=== PATIENT | male | born 1955 | race Caucasian/White ===

== ENCOUNTER 2019-04-12 17:00 | Emergency (ER) | payer OTHER ==
[~2019-04-12] VITALS: Ht 177.8 cm; Wt 109.3 kg
[~2019-04-12 17:00] MED LIST: AMBIEN10 MG PO; CRESTOR10 MG PO; IBUPROFEN400 MG PO
[2019-04-12] MEDS ORDERED: SODIUM CHLORIDE 0.9% 1000ML 1,000 ML IV STA (17:56)
[2019-04-12] MEDS ORDERED: MORPHINE SULFATE INJ 4 MG/ML INJ 1ML IV NR (18:00)
[2019-04-12] MEDS ORDERED: KETOROLAC TROMETHAMINE 30 MG/ML VIAL IV NR (18:00)
[2019-04-12] MEDS ORDERED: ONDANSETRON HCL INJ 2MG/ML 2ML 2 MG/ML VIAL IV NR (18:00)
[2019-04-12 18:23] LABS: BASOPHILS # (AUTO) 0.1 (0.0-0.1); BASOPHILS % 0.9 % (0.0-1.0); EOSINOPHILS # (AUTO) 0.1 (0.0-0.4); EOSINOPHILS % 0.5 % (0.0-6.0); HEMATOCRIT 42.4 % (38.2-49.6); HEMOGLOBIN 14.5 g/dL (14.0-18.0); LYMPHOCYTES # (AUTO) 1.6 (1.0-3.2); LYMPHOCYTES % 12.2 % (18.0-39.1); MEAN CORPUSCULAR HEMOGLOBIN 32.2 pg (28-32); MEAN CORPUSCULAR HGB CONC 34.2 g/dL (31-35); MONOCYTES # (AUTO) 0.9 (0.2-0.8); MONOCYTES % 6.6 % (4.4-11.3); NEUTROPHILS # (AUTO) 10.3 (2.1-6.9); NEUTROPHILS % 79.5 % (38.7-80.0); PLATELET COUNT 260 x10e3/uL (140-360); RED BLOOD COUNT 4.51 x10e6/uL (4.3-5.7); RED CELL DISTRIBUTION WIDTH 13.2 % (11.7-14.4)
[2019-04-12 18:45] LABS: ALBUMIN 3.8 g/dL (3.5-5.0); ALBUMIN/GLOBULIN RATIO 1.3 (0.8-2.0); ANION GAP 16.5 mmol/L (8-16); CALCIUM 8.9 mg/dL (8.4-10.2); CREATININE, SERUM 1.23 mg/dL (0.72-1.25); POTASSIUM 4.5 mmol/L (3.5-5.1)
--- NOTE | 2019-04-12 18:50 | Diagnostic Imaging Report ---
EXAMINATION: CT of the abdomen and pelvis without contrast. TECHNIQUE: Helical CT images of the abdomen and pelvis were performed from the lung bases to the lesser trochanters. No intravenous contrast was given per renal stone protocol. Coronal and sagittal reformatted images were obtained.Dose modulation, iterative reconstruction, and/or weight based adjustment of the mA/kV was utilized to reduce the radiation dose to as low as reasonably achievable. COMPARISON: None. CLINICAL HISTORY:Right-sided pain DISCUSSION: ABSENCE OF INTRAVENOUS CONTRAST DECREASES SENSITIVITY FOR DETECTION OF FOCAL LESIONS AND VASCULAR PATHOLOGY. ABDOMEN/PELVIS: LOWER THORAX: Unremarkable. HEPATOBILIARY:No focal hepatic lesions. No biliary ductal dilation. The gallbladder is normal. SPLEEN: No splenomegaly. PANCREAS: No focal masses or ductal dilatation. ADRENALS: No adrenal nodules. KIDNEYS/URETERS: 3 mm calculus at the right ureterovesicular junction causing mild hydronephrosis and perinephric stranding. PELVIC ORGANS/BLADDER: The bladder is normal. PERITONEUM/RETROPERITONEUM: No free air or fluid. LYMPH NODES: No intra-abdominal,retroperitoneal, pelvic or inguinal lymphadenopathy. VESSELS: Limited evaluation. GI TRACT: No distention or wall thickening. Appendix normal. Scattered colonic diverticulosis. BONES AND SOFT TISSUES: No bony destructive lesions. No soft tissue abnormalities. IMPRESSION: 3 mm calculus at the right ureterovesicular junction causing mild hydronephrosis. Signed by: Dr. Yung Otero M.D. on 04/12/2019 6:48 PM
[2019-04-12 19:40] LABS: CLARITY,URINE SL CLOUDY (CLEAR); COLOR,URINE YELLOW (YELLOW); LEUKOCYTE ESTERASE ,URINE NEGATIVE (NEGATIVE); NITRITE,URINE NEGATIVE (NEGATIVE)
[2019-04-12 19:41] LABS: BILIRUBIN,URINE NEGATIVE (NEGATIVE); KETONES,URINE 1+ (NEGATIVE); PROTEIN,URINE DIPSTICK NEGATIVE (NEGATIVE); URINE UROBILINOGEN 0.2 mg/dL (0.2 - 1)
--- OUTSIDE RECORDS SUMMARY | 2019-04-12 19:46 | XMS REPORT ---
Author [facility] Address Unknown Phone Unavailable Care Team Providers Care Senior [employer] Applications Developer Name Role Phone Martin CONDON Unavailable Unavailable Problems This patient has no known problems. Allergies, Adverse Reactions, Alerts This patient has no known allergies or adverse reactions. Medications This patient has no known medications. Results Test Description Test Time Test Comments Text Results Atomic Results Result Comments CT ABDOMEN/PELVIS WO 2019-04-12 18:46:00 [place] [id number] Patient Name: GABRIELLA CHRISTIAN MR #: [id number] : 1955 Age/Sex: 63/M Req #: [id number] Adm Physician: Ordered by: DREA CHRISTINE NP Report #: [id number] Location: ER Room/Bed: Procedure: [id number] CT/CT ABDOMEN/PELVIS WO Exam Date: 04/12/19 Exam Time: 1823 REPORT STATUS: Signed EXAMINATION: CT of the abdomen and pelvis without contr ast. TECHNIQUE: Helical CT images of the abdomen and pelvis were performed from the lung bases to the lesser trochanters. No intravenous contrast was given per renal stone protocol. Coronal and sagittal reformatted images were obtained.Dose modulation, iterative reconstruction, and/or weight based adjustment of the mA/kV was utilized to reduce the radiation dose to as low as reasonably achievable. COMPARISON: None. CLINICAL HISTORY:Right- sided pain DISCUSSION: ABSENCE OF INTRAVENOUS CONTRAST DECREASES SENSITIVITY FOR DETECTION OF FOCAL LESIONS AND VASCULAR PATHOLOGY. ABDOMEN/PELVIS: LOWER THORAX: Unremarkable. HEPATOBILIARY:No focal hepatic lesions. No biliary ductal dilation. The gallbladder is normal. SPLEEN: No splenomegaly. PANCREAS: No focal masses or ductal dilatation. ADRENALS: No adrenal nodules. KIDNEYS/URETERS: 3 mm calculus at the right ureterovesicular junction causing mild hydronephrosis and perinephric stranding. PELVIC ORGANS/BLADDER: The bladder is normal. PERITONEUM/RETROPERITONEUM: No free air or fluid. LYMPH NODES: No intra- abdominal,retroperitoneal, pelvic or inguinal lymphadenopathy. VESSELS: Limited evaluation. GI TRACT: No distention or wall thickening. Appendix normal. Scattered colonic diverticulosis. BONES AND SOFT TISSUES: No bony destructive lesions. No soft tissue abnormalities. IMPRESSION: 3 mm calculus at the right ureterovesicular junction causing mild hydronephrosis. Signed by: Dr. Huma Franklin M.D. on 04/12/2019 6:48 PM Dictated By: HUMA FRANKLIN MD 47 Transcribed By: HAKAN on 04/12/191847 COPY TO: DREA CHRISTINE NP
[2019-04-12 19:53] LABS: BACTERIA,URINE MODERATE /HPF; MUCUS,URINE MODERATE (RARE)
[2019-04-12 20:24] VITALS: BP 140/78
== END 2019-04-12 20:26 | disposition home or self-care (01) ==
LOC: ER 17:00
DX: R10.31 Right lower quadrant pain (principal); R11.2 Nausea with vomiting, unspecified; N20.0 Calculus of kidney; N39.0 Urinary tract infection, site not specified; E78.5 Hyperlipidemia, unspecified
CPT/HCPCS: 36415; 74176; 80053; 81001; 85025; 99284; J1885; J2270; J2405; J7030

== ENCOUNTER 2023-03-21 16:20 | Emergency (ER) | payer MEDICARE, OTHER ==
[~2023-03-21] VITALS: Ht 177.8 cm; Wt 108.9 kg
[2023-03-21] MEDS ORDERED: MELOXICAM10 MG (16:50)
[2023-03-21] MEDS ORDERED: PROTONIX20 MG PO (16:50)
[2023-03-21] MEDS ORDERED: Ampicillin/Sulbactam 3 GM Vial ONE (16:56)
[2023-03-21] MEDS ORDERED: SODIUM CHLORIDE 0.9% 100 ML ONE (16:56)
[2023-03-21] MEDS ORDERED: AMOX TR-K CLV1 EAC2 PO (17:33)
[2023-03-21 17:40] VITALS: O2SAT 97
== END 2023-03-21 17:40 | disposition home or self-care (01) ==
LOC: FSED 16:27
DX: L03.114 Cellulitis of left upper limb (principal); S61.452A Open bite of left hand, initial encounter; R60.9 Edema, unspecified; L53.8 Other specified erythematous conditions; W55.01XA Bitten by cat, initial encounter; Y92.89 Other specified places as the place of occurrence of the external cause; E78.5 Hyperlipidemia, unspecified; K21.9 Gastro-esophageal reflux disease without esophagitis; Z85.820 Personal history of malignant melanoma of skin
CPT/HCPCS: 80053; 85025; 99284; J0295; J7050

== ENCOUNTER 2024-05-25 21:42 | Emergency (ER) | payer MEDICARE ==
[~2024-05-25] VITALS: Ht 177.8 cm; Wt 101.6 kg
[~2024-05-25 21:42] MED LIST changes: +AMOX TR-K CLV1 EAC2 PO; +MELOXICAM10 MG; +PROTONIX20 MG PO
[2024-05-25] MEDS ORDERED: ONDANSETRON ODT4 MG PO (22:11)
[2024-05-25] MEDS: ONDANSETRON HCL INJ 2MG/ML 2ML 2 MG/ML VIAL IV STA (22:14)
[2024-05-25] MEDS: SODIUM CHLORIDE 0.9% 1000ML 1,000 ML IV STA (22:15)
[2024-05-26 00:19] VITALS: PULSE 62; RESP 17; TEMP 98.6
[2024-05-26 01:46] VITALS: BP 147/88; PULSE 62; RESP 17; TEMP 98.3; O2SAT 96
== END 2024-05-26 00:31 | disposition home or self-care (01) ==
LOC: FSED 22:03
DX: R11.2 Nausea with vomiting, unspecified (principal); K52.9 Noninfective gastroenteritis and colitis, unspecified; J10.1 Influenza due to other identified influenza virus with other respiratory manifestations; E78.5 Hyperlipidemia, unspecified; K21.9 Gastro-esophageal reflux disease without esophagitis; Z11.52 Encounter for screening for COVID-19; Z85.820 Personal history of malignant melanoma of skin
CPT/HCPCS: 0223U; 80053; 81003; 85025; 87400; 99283; J2405; J7030

== ENCOUNTER 2024-08-03 11:13 | Inpatient (IN) | payer MEDICARE ==
[2024-08-03] VITALS (8 sets, daily range): BP systolic 148–184; BP diastolic 76–88; PULSE 71–75; RESP 18–20; TEMP 97.7–99.2; O2SAT 94–96
[~2024-08-03] VITALS: Ht 177.8 cm; Wt 103.6 kg
[~2024-08-03 11:13] MED LIST changes: -MELOXICAM10 MG; +MELOXICAM10 MG PO; +ONDANSETRON ODT4 MG PO
[2024-08-03] MEDS: ONDANSETRON HCL INJ 2MG/ML 2ML 2 MG/ML VIAL IV STA (11:59)
[2024-08-03] MEDS: SODIUM CHLORIDE 0.9% 1000ML 1,000 ML IV SCH (12:04)
[2024-08-03] MEDS: TETANUS/DIPHTHERIA TOX ADULT 0.5 ML SYR IM ONE (12:05)
[2024-08-03] MEDS: TRAMADOL HCL 50 MG TAB PO ONE (12:41)
[2024-08-03] MEDS ORDERED: ONDANSETRON HCL INJ 2MG/ML 2ML 2 MG/ML VIAL IV PRN (14:30)
[2024-08-03] MEDS: METOPROLOL TARTRATE 25 MG TAB PO SCH (16:27)
[2024-08-03] MEDS: ENOXAPARIN SOD INJ 40 MG/0.4 ML SYR SC SCH (16:27)
[2024-08-03] MEDS: TRAMADOL HCL 50 MG TAB PO PRN (16:28)
[2024-08-03] MEDS: ACETAMINOPHEN/CODEINE 300MG - 30MG TAB PO PRN (20:32)
[2024-08-03] MEDS: PANTOPRAZOLE SODIUM 20 MG TABLET.DR PO SCH (20:32)
[2024-08-04 03:16] VITALS: BP 148/80; PULSE 65; RESP 18; TEMP 98.3; O2SAT 94
[2024-08-04 08:27] VITALS: BP 161/79; PULSE 61; RESP 20; TEMP 98; O2SAT 100
[2024-08-04] MEDS: SIMVASTATIN 40 MG TAB PO SCH (08:50)
[2024-08-04 09:28] LABS: BASOPHILS # (AUTO) 0.1 (0.0-0.1); BASOPHILS % 0.7 % (0.0-1.0); EOSINOPHILS # (AUTO) 0.1 (0.0-0.4); EOSINOPHILS % 0.4 % (0.0-6.0); HEMATOCRIT 36.9 % (38.2-49.6); HEMOGLOBIN 12.6 g/dL (14.0-18.0); LYMPHOCYTES # (AUTO) 1.5 (1.0-3.2); LYMPHOCYTES % 12.6 % (18.0-39.1); MEAN CORPUSCULAR HEMOGLOBIN 32.2 pg (28-32); MEAN CORPUSCULAR HGB CONC 34.1 g/dL (31-35); MEAN CORPUSCULAR VOLUME 94.4 fL (81-99); MONOCYTES # (AUTO) 0.9 (0.2-0.8); MONOCYTES % 7.3 % (4.4-11.3); NEUTROPHILS # (AUTO) 9.1 (2.1-6.9); NEUTROPHILS % 78.7 % (38.7-80.0); PLATELET COUNT 225 x10e3/uL (140-360); RED BLOOD COUNT 3.91 x10e6/uL (4.3-5.7); RED CELL DISTRIBUTION WIDTH 14.2 % (11.7-14.4)
[2024-08-04 09:56] LABS: ANION GAP 13.1 mmol/L (8-16); CALCIUM 8.1 mg/dL (8.4-10.2); CREATININE, SERUM 0.88 mg/dL (0.72-1.25); POTASSIUM 3.1 mmol/L (3.5-5.1)
[2024-08-04 10:27] VITALS: BP 79/69; PULSE 161; RESP 20; TEMP 98; O2SAT 100
[2024-08-04 12:14] VITALS: BP 104/68; PULSE 56; RESP 18; TEMP 98; O2SAT 95
[2024-08-04] MEDS: METOPROLOL TARTRATE 25 MG TAB PO ONE (13:00)
[2024-08-04 16:12] VITALS: BP 163/77; PULSE 69; RESP 20; TEMP 98.5; O2SAT 95
[2024-08-04] MEDS: METOPROLOL TARTRATE 50 MG TAB PO SCH (17:14)
[2024-08-04 20:00] VITALS: BP 154/73; PULSE 66; RESP 20; TEMP 98.1; O2SAT 97
[2024-08-05] VITALS (8 sets, daily range): BP systolic 141–164; BP diastolic 69–84; PULSE 51–70; RESP 15–20; TEMP 98–99.7; O2SAT 94–98
[2024-08-05] MEDS ORDERED: FENTANYL CITRATE/PF 100MCG/2 ML INJ ONE (06:39)
[2024-08-05] MEDS ORDERED: EPHEDRINE SULFATE INJ 50 MG/ML VIAL ONE (06:39)
[2024-08-05] MEDS ORDERED: PHENYLEPHRINE HCL 1% 10 MG/ML VIAL ONE (06:39)
[2024-08-05] MEDS ORDERED: ONDANSETRON HCL INJ 2MG/ML 2ML 2 MG/ML VIAL ONE (06:39)
[2024-08-05] MEDS ORDERED: PROPOFOL IV EMULSION 10 MG/ML 20 ML VIAL ONE (06:39)
[2024-08-05] MEDS ORDERED: LIDOCAINE HCL 2% LOCAL INJ 5 ML SDV VIAL INJ ONE (06:39)
[2024-08-05] MEDS ORDERED: MIDAZOLAM HCL 2 MG/2 ML VIAL ONE (06:39)
[2024-08-05] MEDS ORDERED: DEXAMETHASONE SOD PHOS INJ 4 MG/ML SDV ONE (06:39)
[2024-08-05] MEDS ORDERED: SODIUM CHLORIDE 0.9% 100 ML ONE (06:43)
[2024-08-05] MEDS ORDERED: HYDROMORPHONE 2MG/ML ONE (07:16)
[2024-08-06 03:21] VITALS: BP 150/80; PULSE 55; RESP 17; TEMP 98.3; O2SAT 98
[2024-08-06 08:00] VITALS: BP 154/83; PULSE 50; RESP 18; TEMP 98.2; O2SAT 100
[2024-08-06 11:30] VITALS: BP 135/63; PULSE 51; RESP 20; TEMP 97.5; O2SAT 99
[2024-08-06 15:20] LABS: BASOPHILS # (AUTO) 0.1 (0.0-0.1); BASOPHILS % 0.7 % (0.0-1.0); EOSINOPHILS # (AUTO) 0.1 (0.0-0.4); EOSINOPHILS % 0.6 % (0.0-6.0); HEMATOCRIT 31.1 % (38.2-49.6); HEMOGLOBIN 10.5 g/dL (14.0-18.0); LYMPHOCYTES # (AUTO) 1.9 (1.0-3.2); LYMPHOCYTES % 18.5 % (18.0-39.1); MEAN CORPUSCULAR HGB CONC 33.8 g/dL (31-35); MEAN CORPUSCULAR VOLUME 94.8 fL (81-99); MONOCYTES # (AUTO) 1.2 (0.2-0.8); MONOCYTES % 11.1 % (4.4-11.3); NEUTROPHILS # (AUTO) 7.2 (2.1-6.9); NEUTROPHILS % 68.8 % (38.7-80.0); PLATELET COUNT 191 x10e3/uL (140-360); RED BLOOD COUNT 3.28 x10e6/uL (4.3-5.7); RED CELL DISTRIBUTION WIDTH 13.9 % (11.7-14.4); WHITE BLOOD COUNT 10.45 x10e3/uL (4.8-10.8)
[2024-08-06 15:46] LABS: ANION GAP 12.4 mmol/L (8-16); CALCIUM 7.9 mg/dL (8.4-10.2); CREATININE, SERUM 0.8 mg/dL (0.72-1.25)
[2024-08-06 15:51] LABS: POTASSIUM 3.4 mmol/L (3.5-5.1)
[2024-08-06 16:00] VITALS: BP 158/75; PULSE 46; RESP 17; TEMP 97.4; O2SAT 100
[2024-08-06 20:00] VITALS: BP 146/76; PULSE 50; RESP 18; TEMP 98.1; O2SAT 100
[2024-08-06 20:28] VITALS: BP 146/76; PULSE 50; RESP 18; TEMP 98.1; O2SAT 100
[2024-08-07] VITALS (8 sets, daily range): BP systolic 134–179; BP diastolic 58–84; PULSE 50–58; RESP 18–20; TEMP 98.1–98.8; O2SAT 98–100
[2024-08-07 04:24] LABS: BASOPHILS # (AUTO) 0.1 (0.0-0.1); BASOPHILS % 1.2 % (0.0-1.0); EOSINOPHILS # (AUTO) 0.1 (0.0-0.4); EOSINOPHILS % 1.5 % (0.0-6.0); HEMATOCRIT 32.5 % (38.2-49.6); HEMOGLOBIN 10.8 g/dL (14.0-18.0); LYMPHOCYTES # (AUTO) 2.5 (1.0-3.2); MEAN CORPUSCULAR HEMOGLOBIN 31.8 pg (28-32); MEAN CORPUSCULAR HGB CONC 33.2 g/dL (31-35); MEAN CORPUSCULAR VOLUME 95.6 fL (81-99); MONOCYTES % 10.5 % (4.4-11.3); NEUTROPHILS # (AUTO) 5.5 (2.1-6.9); NEUTROPHILS % 59.4 % (38.7-80.0); PLATELET COUNT 194 x10e3/uL (140-360); RED CELL DISTRIBUTION WIDTH 14.1 % (11.7-14.4); WHITE BLOOD COUNT 9.26 x10e3/uL (4.8-10.8)
[2024-08-07 04:39] LABS: ANION GAP 10.3 mmol/L (8-16); CALCIUM 7.9 mg/dL (8.4-10.2); CREATININE, SERUM 0.82 mg/dL (0.72-1.25)
[2024-08-07 04:40] LABS: POTASSIUM 3.3 mmol/L (3.5-5.1)
[2024-08-07] MEDS: HYDRALAZINE HCL 20 MG/ML VIAL IV PRN (17:28)
[2024-08-08 00:18] VITALS: BP 166/67; PULSE 57; RESP 18; TEMP 97.6; O2SAT 99
[2024-08-08] MEDS ORDERED: MELATONIN 3 MG TAB PO PRN (02:00)
[2024-08-08 04:18] VITALS: BP 166/80; PULSE 50; RESP 18; TEMP 98.6; O2SAT 98
[2024-08-08 08:00] VITALS: BP 166/80; PULSE 50; RESP 18; TEMP 98.6; O2SAT 98
[2024-08-08 09:04] VITALS: BP 195/80; PULSE 50; RESP 18; TEMP 97.6; O2SAT 96
[2024-08-08] MEDS ORDERED: MUPIROCIN22 GM TOP (13:43)
[2024-08-08] MEDS ORDERED: ULTRAM 50MG50 MG PO (13:43)
[2024-08-08] MEDS ORDERED: AUGMENTIN 500-1 EACH PO (13:43)
[2024-08-08] MEDS ORDERED: ACETAMINOPHEN-1 EAC4 PO (13:43)
[2024-08-08] MEDS ORDERED: HYDRALAZINE HCL25 MG PO (13:43)
[2024-08-08] MEDS ORDERED: METOPROLOL TART50 MG PO (13:43)
[2024-08-08 14:16] VITALS: BP 165/78; PULSE 46; RESP 20; TEMP 97.6; O2SAT 98
[2024-08-08] MEDS: HYDRALAZINE HCL 25 MG TAB PO SCH (14:22)
[2024-08-08] MEDS: MUPIROCIN 2% OINT 22 GM TUBE TOP SCH (14:28)
[2024-08-08 14:29] VITALS: BP 165/88
[2024-08-08] MEDS ORDERED: ACETAMINOPHEN-1 EAC3 PO (17:53)
== END 2024-08-08 16:16 | disposition home or self-care (01) | DRG 988 ==
LOC: FSED 11:20 → ERHOLD 11:53 → MED/SURG2 14:02
PROVIDERS: ADMIT Internal Medicine; ATTEND Internal Medicine
PROC: 0L970ZZ Drainage of Right Hand Tendon, Open Approach (ICD-10-PCS; principal; 2024-08-05 06:54)
DX: L03.115 Cellulitis of right lower limb (principal); A28.0 Pasteurellosis; R78.81 Bacteremia; E11.9 Type 2 diabetes mellitus without complications; I10 Essential (primary) hypertension; E78.5 Hyperlipidemia, unspecified; S61.250A Open bite of right index finger without damage to nail, initial encounter; K21.9 Gastro-esophageal reflux disease without esophagitis; E66.9 Obesity, unspecified; Z68.33 Body mass index [BMI] 33.0-33.9, adult; Z85.820 Personal history of malignant melanoma of skin
CPT/HCPCS: 36415; 80048; 80053; 82948; 85025; 87040; 87071; 87075; 87186; 87205; 90471; 90714; 96372; 96374; 99252; 99284; J0360; J1100; J1171; J1650; J2003; J2250; J2371; J2405; J2543; J7030; J7050